=== PATIENT | female | born 1970 | race Caucasian/White ===

== ENCOUNTER → 2018-01-03 | Day surgery (SDC) | payer OTHER ==
[~2018-01-03] VITALS: Ht 167.6 cm; Wt 53.5 kg
[~2018-01-03] MED LIST: AZATHIOPRINE50 M1 PO; BUPROPION HCL150 M4 PO; GABAPENTIN300 M2 PO; HYDROXYCHLOROQ200 M2 PO; METHADONE10 MG/1 M2 PO; MOBIC15 M1 PO; NIFEDIPINE ER30 M1 PO; PERCOCET 5-3251 EACH PO
--- NOTE | 2018-01-03 12:03 | Operative Report ---
Operative/Inv Procedure Report Surgery Date: 01/03/18 Name of Procedure: Open right femoral hernia repair Pre-Operative Diagnosis: Right inguinal hernia Post-Operative Diagnosis: Right femoral hernia Estimated Blood Loss: scant Surgeon/Marshmallow Maker: Brandon Barr MD Anesthesia: laryngeal mask airway Implants: Prolene mesh Operative Indication: This is a 47-year-old woman who has what was described as an inguinal cyst. There is concerned this represents an inguinal hernia and she presents for open repair with cyst excision if hernia is not discovered. Operative/Procedure Note Note: After consent she was brought to the operating room and laid supine. General anesthesia was obtained and her abdomen is prepped and draped. The right groin was infiltrated with local anesthesia. Ilioinguinal nerve block was created as well. Incision transversely along the external ring was made sharply. Subcu tissues were dissected with cautery. Inferior epigastric vein was suture ligated with 3-0 Vicryl. We came down through Fiona's fascia and cleared the tissues over the external oblique. The inguinal canal looked normal. We dissected the structures at the external ring. There is no evidence of inguinal hernia sac. The cystic mass was inferior, below the inguinal ligament. We turned our attention to that area and dissected free. There appeared to be a large femoral hernia sac which was circumferentially dissected down to the level of the neck of it. The sac was opened and indeed there was some trapped fluid. There was communication into the peritoneal cavity. We then closed the peritoneal tissues with a running 3-0 Vicryl suture. The sac was then reduced and kept in place using a rolled up piece of Prolene mesh. The mesh was anchored to the inguinal ligament anteriorly and medially and posteriorly to the abductor tissues. Wound was then irrigated with normal saline. Incision was then closed in layers of 3-0 Vicryl and 4-0 Vicryl. Steri-Strips and sterile dressing applied. Sponge and needle counts are correct Findings: Femoral hernia CC: Chantelle Dai APRN
== END ==
LOC: STS 03:47
DX: K41.90 Unilateral femoral hernia, without obstruction or gangrene, not specified as recurrent (principal); J43.9 Emphysema, unspecified; F17.200 Nicotine dependence, unspecified, uncomplicated; M32.9 Systemic lupus erythematosus, unspecified
CPT/HCPCS: J2001; J2250